=== PATIENT | male | born 1955 | race Caucasian/White ===

== ENCOUNTER → 2020-08-13 15:20 | Outpatient (BNVA) | payer MEDICARE, SELFPAY | PROVIDERS: Visit Provider Urology | DX: Z85.51 Personal history of malignant neoplasm of bladder (principal) | CPT/HCPCS: 52000; 81002; 99212 ==

== ENCOUNTER 2021-08-19 08:32 | Outpatient (REF) | payer MEDICARE, SELFPAY ==
[2021-08-19 16:53] LABS: Urine Cytology See Pathology rpt
== END 2021-08-19 08:33 | disposition home or self-care (01) ==
LOC: HO.LAB 08:32
PROVIDERS: Visit Provider Urology
DX: C67.9 Malignant neoplasm of bladder, unspecified (principal); Z85.46 Personal history of malignant neoplasm of prostate
CPT/HCPCS: 52000; 88112; 99212

== ENCOUNTER 2022-08-23 09:06 | Outpatient (REF) | payer MEDICARE, SELFPAY ==
[2022-08-23 16:53] LABS: Urine Cytology See Pathology rpt
== END 2022-08-23 09:07 | disposition home or self-care (01) ==
LOC: HO.LAB 09:06
PROVIDERS: Visit Provider Urology
DX: C67.9 Malignant neoplasm of bladder, unspecified (principal)
CPT/HCPCS: 88112; 99212

== ENCOUNTER 2023-09-05 08:32 | Outpatient (REF) | payer MEDICARE, SELFPAY | END 2023-09-05 08:33 | disposition home or self-care (01) | LOC: HO.LAB 08:32 | PROVIDERS: Visit Provider Urology | DX: C67.9 Malignant neoplasm of bladder, unspecified (principal) | CPT/HCPCS: 52000; 81003; 88121; 99212 ==

== ENCOUNTER 2023-09-05 08:32 | Outpatient (AMB) | payer MEDICARE, SELFPAY ==
--- NOTE | 2023-09-05 08:55 | MHC.OFFVIS ---
Intake Intake Visit Reasons: Cysto(Bladder Ca) Intake Note: Patient is Present for Cystoscopy Urology Med: none Antibiotic Allergy: none Blood Thinner:none URO- G Disposable Cystoscope lot: [id number] exp: 02/12/2025 Allergies Unable to Assess Allergy (Verified 09/05/23 08:55) dairy Allergy (Unknown, Uncoded 09/05/23 08:55) stomach upset HPI HPI Comments History of Present Illness Details James is very pleasant male. He is a patient of Dr. Del Rosario. He is seen for the following urologic conditions - bladder cancer Check cystoscopy No lesions Discussed [email or web address] office Bladder Cancer: Recurrent low-grade bladder cancer Cystoscopy still clear Continue with surveillance. 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 Bladder intervention(s) performed TURBT , , , 06/02, 12/09, 09/11, 06/13. 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 Bladder cancer risk factors Organic Solvent exposure Yes Prior Cystoscopy Negative 07/17 , Negative - prostate irritation 07/18 NAD 07/19 - small lesion on bladder floor - low risk disease on path 02/17 NAD, 08/22 NAD, 08/24 NAD Prior Cytology Negative for malignancy , FISH, 05/16 Normal 05/17 , Negative for malignancy 07/18 Negative 07/19 FISH normal. Prior Imaging Negative. Planned treatment surveillance protocol [facility] Medical History Hypoglycemia Hypercholesterolemia Rosacea Anxiety Lactose intolerance Seasonal allergies Urinary bladder cancer Acute prostatitis Malignant neoplasm of anterior wall of urinary bladder Surgical History History of surgery Social History Patient Tobacco Use Status: Never used Tobacco Review of Systems Const Denies chills and Denies fever(s) Card Reports no additional complaints and Denies syncope Resp Denies cough GI Denies abdominal pain and Denies heartburn Reports as per HPI and Denies change in libido Neuro Denies syncope Psych Denies change in libido Endo Denies change in libido Physical Exam Const General: cooperative, healthy appearing, comfortable and no acute distress Orientation/consciousness: patient oriented x3 HEENT Face and sinus: Yes normal facial exam Mouth: moist mucous membranes Neck Neck: Yes normal visual inspection, Yes full ROM and Yes trachea midline Chest Chest palpation & inspection: normal inspection of the chest Resp Effort & Inspection: normal respiratory effort, able to speak in complete sentences and no respiratory distress GI Inspection: Yes normal to inspection Back/Spine/Pelvis Cervical Spine: normal cervical lordosis Thoracic/Lumbar Spine: thoracic and lumbar spine normal to inspection Skin General skin exam: no rashes or lesions noted Neuro General: patient oriented x3, gait normal, tone normal and moves all extremities Extrem General: Yes normal to inspection and Yes capillary refill normal Office Procedures Cystoscopy Consent Discussed risk and benefit or proposed procedure with the patient. Information consent for procedure given to the patient. Discussed technical aspects, risks, benefits and alternatives in full. Addressed all of the patient's questions and concerns regarding the procedure. The patient demonstrated knowledge and understanding. They wish to proceed with this procedure. Preparation The patient was prepped in the usual manner. A senior pensions administrator was present and in the room. Genitalia was prepped with betadine solution in a sterile manner. Lidocaine Jelly 2% was placed into the urethra and 16Fr flexible Olympus cystoscope was inserted into the meatus after adequate lubrication. Procedure Meatus circumcised Urethra anterior posterior normal Prostatic Urethra unremarkable Bladder examination with retroflexion of cystoscope Bladder Orifices normal Bladder Capacity medium Trabeculations grade 1 Cellule Formation - Diverticulum Formation - Mucosal Erythema - Bladder Tumor - 31239-[id number] DISPOSABLE SCOPE URO-G FLEXIBLE SCOPE Procedure code (CPT) selection complete Office Meds lidocaine HCl 2 % mucosal jelly in applicator Performing Provider: Bret Garcia MD Performing Location: [facility] Administered by: Valerie Corbin RN on 09/05/23 09:04 Dose Route Admin Location Dispensed Lot Number Expiration Date [facility] Cement Gun Operator 10 mL intra-urethral 10 mL nitrofurantoin monohydrate/macrocrystals 100 mg capsule Performing Provider: Bret Garcia MD Performing Location: [facility] Administered by: Valerie Corbin RN on 09/05/23 09:04 Dose Route Admin Location Dispensed Lot Number Expiration Date [place] Cement Gun Operator 100 mg PO 1 cap naproxen 500 mg tablet Performing Provider: Bret Garcia MD [facility] Administered by: Valerie Corbin RN on 09/05/23 09:04 Dose Route Admin Location Dispensed Lot Number Expiration Date [facility] Cement Gun Operator 500 mg PO 1 tab Results AMB Urinalysis, Automated UA Leukoctes 0 Magda/uL Last Edit by Nellie Quesada A on 09/05/23 09:09 UA Nitrite Negative Last Edit by Nellie Quesada, A on 09/05/23 09:09 UA Urobilinogen 0.2 mg/dL Last Edit by Nellie Quesada, A on 09/05/23 09:09 UA Protein 0 mg/dL Last Edit by Nellie Quesada A on 09/05/23 09:09 UA pH 6.0 Last Edit by Nellie Quesada A on 09/05/23 09:09 UA Blood 0 Krishna/uL Last Edit by Nellie Quesada A on 09/05/23 09:09 UA Specific [place] 1.010 Last Edit by Nellie Quesada A on 09/05/23 09:09 UA Ketone Negative Last Edit by Nellie Quesada A on 09/05/23 09:09 UA Bilirubin 0 mg/dL Last Edit by Nellie Quesada A on 09/05/23 09:09 UA Glucose 0 mg/dL Last Edit by Nellie Quesada A on 09/05/23 09:09 Results Reviewed Results Reviewed: Laboratory Last Values Urine pH (Auto) 6.0 09/05/23 08:56 Specific [place] (Auto) 1.010 09/05/23 08:56 Urine Protein (Auto) 0 mg/dL 09/05/23 08:56 Glucose (UA)(Auto) 0 mg/dL 09/05/23 08:56 Urine Ketones (Auto) Negative 09/05/23 08:56 Urine Blood (Auto) 0 Krishna/uL 09/05/23 08:56 Urine Nitrite (Auto) Negative 09/05/23 08:56 Urine Bilirubin (Auto) 0 mg/dL 09/05/23 08:56 Urine Urobilinogen (Auto) 0.2 mg/dL 09/05/23 08:56 Leukocyte Esterase (Auto) 0 Magda/uL 09/05/23 08:56 Assessment & Plan Assessment & Plan (1) Bladder cancer: Comment: Recurrent superficial Code(s): C67.9 - Malignant neoplasm of bladder, unspecified Plan Twelve month follow-up system Orders: Orders AMB Cystoscopy Today C67.9 - Malignant neoplasm of bladder, unspecified AMB Urinalysis Automated Today C67.9 - Malignant neoplasm of bladder, unspecified, Z13.9 - Encounter for screening, unspecified FISH Bladder Cancer Today C67.9 - Malignant neoplasm of bladder, unspecified Patient Instructions: Imaging studies, laboratory and physical exam results were discussed and reviewed in detail. No major barriers to patient understanding were identified. An opportunity to ask questions regarding the treatment plan was provided. All questions were answered. The patient expressed understanding and agreement with the above treatment plan. The patient is aware they should contact our office by phone for worsening of their current condition or the appearance of new urologic symptoms. Compliance is encouraged with any medications and followup testing that is ordered. It is a privilege to participate in the urologic care of your patient. If you have any questions or concerns regarding treatment for the above conditions, or other urologic issues, please do not hesitate to contact me. The office telephone contact is [phone]. This note is constructed using voice recognition software. While every effort has been made to ensure accuracy dielectric tester errors may have been included. Yours sincerely, Dr Bret Garcia MD, [facility] - Urology Providers of Expert, Compassionate Care for the Genitourinary System Coding Level of Care Code Est Pt Level 4 (25945) Diagnoses Bladder cancer C67.9 CPT Codes Cystoscopy - CPT: 38147-[id number] ([id number])
== END 2023-09-05 10:02 | disposition home or self-care (01) ==
PROVIDERS: Visit Provider Urology
DX: Z85.51 Personal history of malignant neoplasm of bladder (principal); Z13.9 Encounter for screening, unspecified
CPT/HCPCS: 52000; 99213

== ENCOUNTER 2024-09-05 08:39 | Outpatient (AMB) | payer MEDICARE, SELFPAY ==
--- NOTE | 2024-09-05 08:48 | MHC.OFFVIS ---
Intake Visit Reasons: cysto Intake Note: Patient is present for Cystoscopy Urology Medication:NONE Antibiotic Allergy:NONE Blood Thinner:NONE Lot:[id number] Exp:08/05/27 Percussion Tuner Required: No Allergies Unable to Assess Allergy (Verified 09/05/24 08:50) dairy Allergy (Unknown, Uncoded 09/05/24 08:50) stomach upset HPI Comments Details: James is very pleasant male. He is a patient of Dr. Del Rosario. He is seen for the following urologic conditions - bladder cancer Check cystoscopy No lesions Discussed [facility] Has started following [place] since is a [employer] fan Bladder Cancer: Recurrent low-grade bladder cancer Cystoscopy still clear Continue with surveillance. 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 Bladder intervention(s) performed TURBT , , , 06/02, 12/09, 09/11, 06/13. 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 Bladder cancer risk factors Organic Solvent exposure Yes Prior Cystoscopy Negative 07/17 , Negative - prostate irritation 07/18 NAD 07/19 - small lesion on bladder floor - low risk disease on path 02/17 NAD, 08/22 NAD, 08/24 NAD Prior Cytology Negative for malignancy , FISH, 05/16 Normal 05/17 , Negative for malignancy 07/18 Negative 07/19 FISH normal. Prior Imaging Negative. Planned treatment surveillance protocol [facility] Medical History Hypoglycemia Hypercholesterolemia Rosacea Anxiety Lactose intolerance Seasonal allergies Urinary bladder cancer Acute prostatitis Malignant neoplasm of anterior wall of urinary bladder Surgical History History of surgery Social History Patient Tobacco Use Status: Never used Tobacco Review of Systems Const Denies chills and Denies fever(s) Card Reports no additional complaints and Denies syncope Resp Denies cough GI Denies abdominal pain and Denies heartburn Reports as per HPI and Denies change in libido Neuro Denies syncope Psych Denies change in libido Endo Denies change in libido Physical Exam Const General: cooperative, healthy appearing, comfortable and no acute distress Orientation/consciousness: patient oriented x3 HEENT Face and sinus: Yes normal facial exam Mouth: moist mucous membranes Neck Neck: Yes normal visual inspection, Yes full ROM and Yes trachea midline Chest Chest palpation & inspection: normal inspection of the chest Resp Effort & Inspection: normal respiratory effort, able to speak in complete sentences and no respiratory distress GI Inspection: Yes normal to inspection Back/Spine/Pelvis Cervical Spine: normal cervical lordosis Thoracic/Lumbar Spine: thoracic and lumbar spine normal to inspection Skin General skin exam: no rashes or lesions noted Neuro General: patient oriented x3, gait normal, tone normal and moves all extremities Extrem General: Yes normal to inspection and Yes capillary refill normal Office Procedures Cystoscopy Consent Discussed risk and benefit or proposed procedure with the patient. Information consent for procedure given to the patient. Discussed technical aspects, risks, benefits and alternatives in full. Addressed all of the patient's questions and concerns regarding the procedure. The patient demonstrated knowledge and understanding. They wish to proceed with this procedure. Preparation The patient was prepped in the usual manner. A superintendent horticulture was present and in the room. Genitalia was prepped with betadine solution in a sterile manner. Lidocaine Jelly 2% was placed into the urethra and 16Fr flexible Olympus cystoscope was inserted into the meatus after adequate lubrication. Procedure Cystoscopy performed using a disposable Urovue digital 16 Bulgarian cystoscope. Meatus circumcised Urethra anterior and posterior urethra normal Prostatic Urethra unremarkable Bladder examination with retroflexion of cystoscope Bladder Orifices normal shape and position Bladder Capacity medium Trabeculations grade 1 Cellule Formation small Diverticulum Formation - Mucosal Erythema - Bladder Tumor - [id number] Procedure code (CPT) selection complete Office Meds lidocaine HCl 2 % mucosal jelly in applicator Performing Provider: Bret Garcia MD [facility] Administered by: Bret Garcia MD on 09/05/24 10:24 Dose Route Admin Location Dispensed Lot Number Expiration Date [facility] Volumetric Weigher 10 mL intra-urethral 10 mL Results AMB Urinalysis, Automated UA Leukoctes 0 Magda/uL Last Edit by DEANNA Nagel on 09/05/24 08:58 UA Nitrite Negative Last Edit by DEANNA Nagel on 09/05/24 08:58 UA Urobilinogen 0.2 mg/dL Last Edit by DEANNA Nagel on 09/05/24 08:58 UA Protein 0 mg/dL Last Edit by DEANNA Nagel on 09/05/24 08:58 UA pH 6.0 Last Edit by DEANNA Nagel on 09/05/24 08:58 UA Blood 0 Krishna/uL Last Edit by DEANNA Nagel on 09/05/24 08:58 UA Specific [place] 1.015 Last Edit by DEANNA Nagel on 09/05/24 08:58 UA Ketone Negative Last Edit by DEANNA Nagel on 09/05/24 08:58 UA Bilirubin 0 mg/dL Last Edit by DEANNA Nagel on 09/05/24 08:58 UA Glucose 0 mg/dL Last Edit by DEANNA Nagel on 09/05/24 08:58 Results Reviewed Results Reviewed: Laboratory Last Values Urine pH (Auto) 6.0 09/05/24 08:57 Specific [place] (Auto) 1.015 09/05/24 08:57 Urine Protein (Auto) 0 mg/dL 09/05/24 08:57 Glucose (UA)(Auto) 0 mg/dL 09/05/24 08:57 Urine Ketones (Auto) Negative 09/05/24 08:57 Urine Blood (Auto) 0 Krishna/uL 09/05/24 08:57 Urine Nitrite (Auto) Negative 09/05/24 08:57 Urine Bilirubin (Auto) 0 mg/dL 09/05/24 08:57 Urine Urobilinogen (Auto) 0.2 mg/dL 09/05/24 08:57 Leukocyte Esterase (Auto) 0 Magda/uL 09/05/24 08:57 Assessment & Plan Assessment & Plan (1) Bladder cancer: Comment: Recurrent superficial Code(s): C67.9 - Malignant neoplasm of bladder, unspecified Category: Medical Plan Twelve month follow-up cystoscopy Orders: Orders AMB Urinalysis Automated Today Z13.9 - Encounter for screening, unspecified AMB Cystoscopy Today C67.9 - Malignant neoplasm of bladder, unspecified Medications: New lidocaine HCl 2% 10 mL intra-urethral ONCE 10 mL 0RF C67.9 - Malignant neoplasm of bladder, unspecified Patient Instructions: Imaging studies, laboratory and physical exam results were discussed and reviewed in detail. No major barriers to patient understanding were identified. An opportunity to ask questions regarding the treatment plan was provided. All questions were answered. The patient expressed understanding and agreement with the above treatment plan. The patient is aware they should contact our office by phone for worsening of their current condition or the appearance of new urologic symptoms. Compliance is encouraged with any medications and followup testing that is ordered. It is a privilege to participate in the urologic care of your patient. If you have any questions or concerns regarding treatment for the above conditions, or other urologic issues, please do not hesitate to contact me. The office telephone contact is [phone]. This note is constructed using voice recognition software. While every effort has been made to ensure accuracy paraprofessional aide teacher errors may have been included. Yours sincerely, Dr Bret Garcia MD, [facility] - Urology Providers of Expert, Compassionate Care for the Genitourinary System Coding Level of Care Code Est Pt Level 4 (93950) Diagnoses Bladder cancer C67.9 CPT Codes Cystoscopy - CPT: [id number] ([id number])
== END 2024-09-05 09:41 | disposition home or self-care (01) ==
PROVIDERS: Visit Provider Urology
DX: Z85.51 Personal history of malignant neoplasm of bladder (principal); Z13.9 Encounter for screening, unspecified
CPT/HCPCS: 52000; 99213

== ENCOUNTER → 2024-09-05 08:39 | Outpatient (BNVA) | payer MEDICARE, SELFPAY | PROVIDERS: Visit Provider Urology | DX: C67.9 Malignant neoplasm of bladder, unspecified (principal) | CPT/HCPCS: 52000; 81003; 99212 ==